=== PATIENT | female | born 1960 | race Caucasian/White ===

== ENCOUNTER 2017-05-14 10:58 | Day surgery (SDC) | payer OTHER, MEDICAID ==
--- NOTE | 2017-05-14 12:07 | PDANEPAE ---
ANE History of Present Illness Colonoscopy ANE Past Medical History - Cardiovascular History Hx Hypertension: No Hx Arrhythmias: No Hx Chest Pain: No Hx Coronary Artery / Peripheral Vascular Disease: No Hx CHF / Valvular Disease: No Hx Palpitations: No - Pulmonary History Hx COPD: Yes Hx Asthma/Reactive Airway Disease: No Hx Recent Upper Respiratory Infection: No Hx Oxygen in Use at Home: Yes O2 in Use at Home (L/minute): 2L Hx Sleep Apnea: Yes Sleep Apnea Screening Result - Last Documented: Positive Pulmonary History Comment: cpap with 02 bleed - Neurologic History Hx Cerebrovascular Accident: No Hx Seizures: No Hx Dementia: No - Endocrine History Hx Diabetes: No Hypothyroid: No Hyperthyroid: No Obesity: no - Renal History Hx Renal Disorders: Yes Renal History Comment: rickets, with ca deposits - Liver History Hx Hepatic Disorders: No - Neurological & Psychiatric Hx Hx Neurological and Psychiatric Disorders: Yes Neurological / Psychiatric History Comment: anxiety - Cancer History Hx Cancer: No - Congenital Disorder History Hx Congenital Disorders: No - GI History GERD: no Hx Gastrointestinal Disorders: No - Other Health History Other Health History: six teeth remaining on bottom - Chronic Pain History Chronic Pain: No - Surgical History Prior Surgeries: none ANE Review of Systems Review of Systems: - Exercise capacity METS (RN): 4 METS - Systems Respiratory: Reports: shortness of breath ANE Patient History - Allergies Allergies/Adverse Reactions: Penicillins Allergy (Verified 01/06/13 11:25) prochlorperazine edisylate [From Compazine] Allergy (Verified 01/06/13 11:25) prochlorperazine maleate [From Compazine] Allergy (Verified 01/06/13 11:25) - Home Medications Home medications: home medication list seen and reviewed, none Home Medications: No Meds 01/06/13 [Last Taken Unknown] - NPO status NPO Since - Liquids (Date): 05/13/17 NPO Since - Liquids (Time): 01:00 NPO Since - Solids (Date): 05/13/17 NPO Since - Solids (Time): 08:00 - Smoking Hx Smoking Status: Former smoker - Alcohol Use Alcohol Use: Heavy - Family Anes Hx Family Anes Hx: none Family Hx Anesthesia Complications: none ANE Labs/Vital Signs - Vital Signs Blood Pressure: 110/82 Heart Rate: 67 Respiratory Rate: 16 O2 Sat (%): 93 Height: 154.94 cm Weight: 58.513 kg ANE Physical Exam - Airway Mallampati Score: Class 2 Mouth exam: dentures - Pulmonary Pulmonary: reduced air movement, respiratory distress - Cardiovascular Cardiovascular: regular rate and rhythym - ASA Status ASA Status: III ANE Anesthesia Plan Anesthesia Plan: GA with mask Total IV Anesthesia: Yes
[2017-05-14] MEDS ORDERED: LR 1,000 ML IV ONE (12:12)
[2017-05-14] MEDS ORDERED: PROPOFOL 200 MG/20 ML VIAL ONE ×2 (13:34)
--- NOTE | 2017-05-14 13:34 | PDGENHP ---
History & Physical Chief Complaint: famhx CRC History of Present Illness: 57 year presents for surveillance colonoscopy. sis- CRC Pertinent Past, Social, Family History: PMHx: COPD. FaMHx: CRC Relevant Physical Exam: HEENT: anicteric. CV: RRR +s1s2. Lungs: CTAB. Abd: soft, nt, + BS Cardiorespiratory Assessment: ASA 3
[2017-05-14] MEDS ORDERED: LIDOCAINE 2% 5 ML SDV ONE (13:35)
[2017-05-14] MEDS ORDERED: INDOMETHACIN 50 MG SUPP PR PRN (13:37)
[2017-05-14] MEDS ORDERED: NS 500 ML IV SCH (13:45)
[2017-05-14] MEDS ORDERED: ALBUTEROL 3 ML DEYVIAL IH PRN (13:59)
[2017-05-14] MEDS ORDERED: ONDANSETRON 4 MG/2 ML VIAL IVP PRN (13:59)
[2017-05-14] MEDS ORDERED: LR 500 ML IV PRN (13:59)
[2017-05-14] MEDS ORDERED: NALOXONE HCL 0.4 MG/ML INJ IVP PRN (13:59)
--- NOTE | 2017-05-14 14:09 | POSTANESTH ---
Post Anesthetic Evaluation Cardiovascular Status: Normal, Stable, Similar to Pre-Op Cond Respiratory Status: Normal, Stable, Similar to Pre-op Cond. Level of Consciousness/Mental Status: Can Participate in Eval Pain Control: Adequate, Prn Tx Ordered Nausea/Vomiting Control: Adequate, Prn Tx Ordered Complications Possibly Related to Anesthesia: None Noted
[2017-05-14 14:10] VITALS: PULSE 88
--- NOTE | 2017-05-14 14:14 | GIREPORT ---
Pending Sale To [facility] - Endoscopy Department Patient Name: Venessa Mortensen Procedure Date: 05/14/2017 1:28 PM Patient Type: Outpatient Attending MD/ ER Physician: Jose Armando Lozano MD Procedure: Colonoscopy Indications: Family history of colon cancer in a first-degree relative Patient Profile: 57 year old female with a family history of CRC (sis) presents for surveillance colonoscopy. Providers: Jose Armando Lozano MD Medicines: Monitored Anesthesia Care Complications: No immediate complications. Estimated blood loss: Minimal. Description of Procedure: After obtaining informed consent, the scope was passed under direct vis ion. Throughout the procedure, the patient's blood pressure, pulse, and oxyg en saturations were monitored continuously. The was introduced through the anus and advanced to the terminal ileum. The colonoscopy was performed witho ut difficulty. The patient tolerated the procedure well. The quality of th e bowel preparation was good. The terminal ileum, ileocecal valve, append iceal orifice, and rectum were photographed. Findings: The perianal and digital rectal examinations were normal. Pertinent negatives include no palpable rectal lesions. A few small-mouthed diverticula were found in the sigmoid colon. A 2 mm polyp was found in the cecum. The polyp was sessile. The polyp w as removed with a cold biopsy forceps. Resection and retrieval were comple te. A 4 mm polyp was found in the rectum. The polyp was sessile. The polyp was removed with a cold snare. Resection and retrieval were complete. Estimated Blood Loss: Estimated blood loss was minimal. Post Op Diagnosis: - Diverticulosis in the sigmoid colon. - One 2 mm polyp in the cecum, removed with a cold biopsy forceps. Rese cted and retrieved. - One 4 mm polyp in the rectum, removed with a cold snare. Resected and retrieved. Recommendation: - Discharge patient to home (with escort). - Resume previous diet. - Continue present medications. - Use fiber, for example Citrucel, Fibercon, Konsyl or Metamucil. - Repeat colonoscopy in 5 years for surveillance. - Thank you for allowing me to participate in the care of your patient. Attending Participation: I personally performed the entire procedure. Jose Armando Lozano MD Jose Armando Lozano MD 05/14/2017 2:13:49 PM This report has been signed electronicallyJose Armando Lozano MD Number of Addenda: 0 Note Initiated On: 05/14/2017 1:28 PM Total Procedure Duration Time 0 hours 19 minutes 9 seconds [email or web address]
[2017-05-14 14:47] VITALS: RESP 15
[2017-05-14 15:48] VITALS: BP 104/93; TEMP 97.8; O2SAT 97
== END 2017-05-14 15:05 | disposition home or self-care (01) ==
LOC: FSGY 10:58
PROVIDERS: ATTEND Internal Medicine Gastroenterology
PROC: 0DBH8ZX Excision of Cecum, Via Natural or Artificial Opening Endoscopic, Diagnostic (ICD-10-PCS; principal; 2017-05-14 12:30)
PROC: 0DBP8ZX Excision of Rectum, Via Natural or Artificial Opening Endoscopic, Diagnostic (ICD-10-PCS; principal; 2017-05-14 12:30)
DX: D12.0 Benign neoplasm of cecum (principal); K62.1 Rectal polyp; Z80.0 Family history of malignant neoplasm of digestive organs
CPT/HCPCS: J2704

== ENCOUNTER → 2017-07-12 | Outpatient (CLI) | payer OTHER, MEDICAID | LOC: BMCIMAGING 09:04 | PROVIDERS: ATTEND Physician Assistant Medical | DX: Z12.31 Encounter for screening mammogram for malignant neoplasm of breast (principal) ==